=== PATIENT | female | born 1995 | race Native Hawaiian/Other Pacific Islander ===

== ENCOUNTER 2018-01-25 14:03 | Emergency (ER) | payer OTHER ==
[~2018-01-25] VITALS: Ht 157.5 cm; Wt 70.5 kg
[2018-01-25] MEDS ORDERED: KETOROLAC TROMETHAMINE 30 MG/ML VIAL IM ONE (14:45)
[2018-01-25 15:49] VITALS: BP 123/69
== END 2018-01-25 16:35 | disposition home or self-care (01) ==
LOC: EMS 14:04
DX: S33.8XXA Sprain of other parts of lumbar spine and pelvis, initial encounter (principal); S39.013A Strain of muscle, fascia and tendon of pelvis, initial encounter; X58.XXXA Exposure to other specified factors, initial encounter; Y93.I9 Activity, other involving external motion; Y92.89 Other specified places as the place of occurrence of the external cause; Y99.8 Other external cause status
CPT/HCPCS: 72220; 81025; 96372; 99284; J1885

== ENCOUNTER → 2018-07-21 | Outpatient (CLI) | payer OTHER | END | disposition home or self-care (01) | LOC: RADPV 14:20 | PROVIDERS: ATTEND Pediatrics | DX: Z86.11 Personal history of tuberculosis (principal) ==